=== PATIENT | male | born 1975 | race Caucasian/White ===

== ENCOUNTER 2016-11-01 17:17 | Inpatient (IN) | payer BC ==
[2016-11-01] MEDS ORDERED: cefTRIAXone 2 GM Vial IVPUSH ONE (17:18)
[2016-11-01] MEDS ORDERED: Sodium Chloride 0.9% 10 ML Syringe FLUSH PRN (17:18)
[2016-11-01] MEDS: Acetaminophen 325 MG Tab PO PRN ×2 (19:18→22:50)
[2016-11-01] MEDS: Sodium Chloride 0.9% 1,000 ML IV SCH (19:19)
[2016-11-01] MEDS ORDERED: cefTRIAXone 2 GM, Lidocaine 1% 4.2 ML IM ONE ×2 (19:39)
[2016-11-02] MEDS: Sodium Chloride 0.9% 1,000 ML IV SCH (05:16)
[2016-11-02 06:45] VITALS: BP 128/67
[2016-11-02 06:57] LABS: CHLORIDE,CL 103 mmol/L (98-107); SODIUM,NA 141 mmol/L (136-145)
--- NOTE | 2016-11-02 08:28 | PCM.HP ---
H&P History of Present Illness - General Date of Service: 11/01/16 Admit Problem/Dx: Admission Diagnosis/Problem Admission Diagnosis/Problem Sepsis due to cellulitis of RLE Source of Information: Patient - History of Present Illness Initial Comments - Free Text/Narative: 41 yo male admitted from the [facility] for sepsis secondary to cellulitis. Patient presented to the clinic for concerns of not feeling well for 1 day and having noticed redness and swelling to the RLE. Denies pain, but states it is "uncomfortable". Unsure of any fevers while at home but was 101.1 in the clinic. Patient has had a hx of cellulitis to the RLE that was well treated with Keflex. At the time it was noted his HR was 128. Denies palpitations or chest pain. Did have a YANES. BP was within normal range. EKG was performed and showed sinus tachycardia. Lab work was also drawn and revealed a WBC of 33.1. Patient denied diarrhea, abdominal pain, or UR symptoms. PMH significant for HTN and elevated A1C. Does not currently take medications aside from Indomethacin as needed for gout flare. Onset of Symptoms: Reports: Today, Sudden Location: Reports: Lower Extremity, Right Quality: Reports: Ache Severity: Mild Associated Symptoms: Reports: Fever/Chills - Related Data Allergies/Adverse Reactions: Allergies Allergy/AdvReac Type Severity Reaction Status Date / Time No Known Allergies Allergy Verified 11/01/16 17:34 Home Medications: Home Meds Lisinopril 20 mg PO DAILY 11/01/16 [History] NIFEdipine [Nifedipine ER] 90 mg PO DAILY 11/01/16 [History] Cephalexin [Keflex] 500 mg PO QID #40 capsule 11/02/16 [Rx] Past Medical History HEENT History: Reports: None Cardiovascular History: Reports: None Respiratory History: Reports: None Gastrointestinal History: Reports: None Genitourinary History: Reports: None Musculoskeletal History: Reports: None Neurological History: Reports: None Psychiatric History: Reports: None Endocrine/Metabolic History: Reports: None Hematologic History: Reports: None Immunologic History: Reports: None Oncologic (Cancer) History: Reports: None Dermatologic History: Reports: None - Infectious Disease History Infectious Disease History: Reports: Chicken Pox - Past Surgical History Head Surgeries/Procedures: Reports: None HEENT Surgical History: Reports: Tonsillectomy Cardiovascular Surgical History: Reports: None Respiratory Surgical History: Reports: None GI Surgical History: Reports: None Male Surgical History: Reports: None Endocrine Surgical History: Reports: None Neurological Surgical History: Reports: None Musculoskeletal Surgical History: Reports: None Oncologic Surgical History: Reports: None Dermatological Surgical History: Reports: None Social & Family History - Family History Family Medical History: Noncontributory - Tobacco Use Smoking Status *Q: Never Smoker - Caffeine Use Caffeine Use: Reports: None - Recreational Drug Use Recreational Drug Use: No H&P Review of Systems - Review of Systems: Review Of Systems: See Below General: Reports: Fever, Chills HEENT: Denies: Rhinitis, Post Nasal Drip, Sinus Congestion Pulmonary: Reports: No Symptoms. Denies: Cough Cardiovascular: Reports: Edema. Denies: Chest Pain, Palpitations Gastrointestinal: Denies: Abdominal Pain, Diarrhea Skin: Reports: Erythema, Change in Color. Denies: Wound Exam - Exam Exam: See Below - Vital Signs Vital Signs: Last Vital Signs Temp 36.4 C 11/02/16 06:00 Pulse 83 11/02/16 06:00 Resp 20 11/02/16 06:00 BP 128/67 11/02/16 06:00 Pulse Ox 93 L 11/02/16 06:00 Weight: 176.175 kg - Exam General: Alert, Oriented, Other (No distress) Lungs: Clear to Auscultation, Normal Respiratory Effort. No: Decreased Breath Sounds, Crackles, Rales, Rhonchi, Wheezing Cardiovascular: Regular Rhythm, Normal S1, Normal S2, Tachycardia (120's) Extremities: Edema (Trace edema bilaterally), Increased Warmth, Other ( Blanching eythema measuruing 10.5 x 12.5 to the RLE) Skin: Warm, Dry Neuro Extensive - Mental Status: Alert, Oriented x3, Normal Mood/Affect, Normal Cognition, Memory Intact Neuro Extensive - Motor, Sensory, Reflexes: Normal Gait Psychiatric: Alert, Normal Affect, Normal Mood - Patient Data Lab Results last 24 hrs: Laboratory Results - last 24 hr 11/01/16 11/01/16 11/01/16 Range/Units 18:45 18:45 18:58 WBC (4.0-10.0) x10^3/uL RBC (4.5-6.0) x10^6/uL Hgb (14.0-18.0) g/dL Hct (40.0-52.0) % MCV (78.0-93.0) fL MCH (26.0-32.0) pg MCHC (32.0-36.0) g/dL RDW Coeff of Ekaterina (10.0-15.0) % Plt Count (130-400) x10^3/uL Neut % (Auto) (50.0-80.0) % Lymph % (Auto) (25.0-50.0) % [place] % (Auto) (2.0-11.0) % Eos % (Auto) (0.0-4.0) % Baso % (Auto) (0.2-1.2) % Sodium (136-145) mmol/L Potassium (3.5-5.1) mmol/L Chloride (98-107) mmol/L Carbon Dioxide (21-32) mmol/L BUN (7-18) mg/dL Creatinine (0.70-1.30) mg/dL Est Cr Clr Drug Dosing mL/min Estimated GFR (MDRD) Glucose (74-106) mg/dL POC Glucose (74-106) mg/dL Lactic Acid 2.8 H (0.4-2.0) mmol/L Calcium (8.5-10.1) mg/dL C-Reactive Protein 8.7 H (<=0.9) mg/dL Urine Color Yellow (YELLOW) Urine Appearance Clear (CLEAR) Urine pH 5.5 (5.0-8.0) Ur Specific [place] 1.020 Urine Protein Trace H (NEGATIVE) mg/dL Urine Glucose (UA) Negative (NEGATIVE) mg/dL Urine Ketones Negative (NEGATIVE) mg/dL Urine Occult Blood Trace-lysed H (NEGATIVE) Urine Nitrite Negative (NEGATIVE) Urine Bilirubin Negative (NEGATIVE) Urine Urobilinogen 0.2 (0.2) EU/dL Ur Leukocyte Esterase Negative (NEGATIVE) Urine RBC 0-5 (NOT SEEN) /HPF Urine WBC 0-5 (NOT SEEN) /HPF Ur Squamous Epith Cells Not seen (NEGATIVE) /HPF Urine Bacteria Rare (NEGATIVE) /HPF Urine Mucus Rare H (NEGATIVE) /LPF 11/01/16 11/02/16 11/02/16 Range/Units 20:22 06:20 06:27 WBC 18.9 H (4.0-10.0) x10^3/uL RBC 4.67 (4.5-6.0) x10^6/uL Hgb 13.4 L (14.0-18.0) g/dL Hct 40.0 (40.0-52.0) % MCV 85.7 (78.0-93.0) fL MCH 28.7 (26.0-32.0) pg MCHC 33.5 (32.0-36.0) g/dL RDW Coeff of Ekaterina 14.5 (10.0-15.0) % Plt Count 174 (130-400) x10^3/uL Neut % (Auto) 85.2 H (50.0-80.0) % Lymph % (Auto) 4.6 L (25.0-50.0) % [place] % (Auto) 10.0 (2.0-11.0) % Eos % (Auto) 0.1 (0.0-4.0) % Baso % (Auto) 0.1 L (0.2-1.2) % Sodium (136-145) mmol/L Potassium (3.5-5.1) mmol/L Chloride (98-107) mmol/L Carbon Dioxide (21-32) mmol/L BUN (7-18) mg/dL Creatinine (0.70-1.30) mg/dL Est Cr Clr Drug Dosing mL/min Estimated GFR (MDRD) Glucose (74-106) mg/dL POC Glucose 166 H 128 H (74-106) mg/dL Lactic Acid (0.4-2.0) mmol/L Calcium (8.5-10.1) mg/dL C-Reactive Protein (<=0.9) mg/dL Urine Color (YELLOW) Urine Appearance (CLEAR) Urine pH (5.0-8.0) Ur Specific [place] Urine Protein (NEGATIVE) mg/dL Urine Glucose (UA) (NEGATIVE) mg/dL Urine Ketones (NEGATIVE) mg/dL Urine Occult Blood (NEGATIVE) Urine Nitrite (NEGATIVE) Urine Bilirubin (NEGATIVE) Urine Urobilinogen (0.2) EU/dL Ur Leukocyte Esterase (NEGATIVE) Urine RBC (NOT SEEN) /HPF Urine WBC (NOT SEEN) /HPF Ur Squamous Epith Cells (NEGATIVE) /HPF Urine Bacteria (NEGATIVE) /HPF Urine Mucus (NEGATIVE) /LPF 11/02/16 11/02/16 Range/Units 06:27 06:27 WBC (4.0-10.0) x10^3/uL RBC (4.5-6.0) x10^6/uL Hgb (14.0-18.0) g/dL Hct (40.0-52.0) % MCV (78.0-93.0) fL MCH (26.0-32.0) pg MCHC (32.0-36.0) g/dL RDW Coeff of Ekaterina (10.0-15.0) % Plt Count (130-400) x10^3/uL Neut % (Auto) (50.0-80.0) % Lymph % (Auto) (25.0-50.0) % [place] % (Auto) (2.0-11.0) % Eos % (Auto) (0.0-4.0) % Baso % (Auto) (0.2-1.2) % Sodium 141 (136-145) mmol/L Potassium 3.5 (3.5-5.1) mmol/L Chloride 103 (98-107) mmol/L Carbon Dioxide 29 (21-32) mmol/L BUN 14 (7-18) mg/dL Creatinine 1.1 (0.70-1.30) mg/dL Est Cr Clr Drug Dosing 97.86 mL/min Estimated GFR (MDRD) > 60 Glucose 139 H (74-106) mg/dL POC Glucose (74-106) mg/dL Lactic Acid 0.8 (0.4-2.0) mmol/L Calcium 8.0 L (8.5-10.1) mg/dL C-Reactive Protein (<=0.9) mg/dL Urine Color (YELLOW) Urine Appearance (CLEAR) Urine pH (5.0-8.0) Ur Specific [place] Urine Protein (NEGATIVE) mg/dL Urine Glucose (UA) (NEGATIVE) mg/dL Urine Ketones (NEGATIVE) mg/dL Urine Occult Blood (NEGATIVE) Urine Nitrite (NEGATIVE) Urine Bilirubin (NEGATIVE) Urine Urobilinogen (0.2) EU/dL Ur Leukocyte Esterase (NEGATIVE) Urine RBC (NOT SEEN) /HPF Urine WBC (NOT SEEN) /HPF Ur Squamous Epith Cells (NEGATIVE) /HPF Urine Bacteria (NEGATIVE) /HPF Urine Mucus (NEGATIVE) /LPF Result Diagrams: 11/02/16 06:27 11/02/16 06:27 Phillip Results last 24 hrs: Microbiology 11/01/16 18:55 Anaerobic Blood Culture - Final Blood - Venous - Lab Draw 11/01/16 18:45 Anaerobic Blood Culture - Final Blood - Venous *Q Meaningful Use (ADM) - VTE *Q VTE Criteria *Q: - Stroke *Q Stroke Criteria *Q: - AMI *Q AMI Criteria *Q: Problem List Initiated/Reviewed/Updated: Yes Orders Last 24hrs: Active Orders 24 hr Category Date Time Status Blood Glucose Check, Bedside [RC] 07,11,17,20 Care 11/01/16 17:18 Active Oxygen Therapy [RC] .PRN Care 11/01/16 17:18 Active Up ad Karen [RC] ASDIRECTED Care 11/01/16 17:18 Active VTE/DVT Education [RC] .PRN Care 11/01/16 17:18 Active Vital Signs [RC] 06,10,14,18,22,02 Care 11/01/16 17:18 Active [place] [employer] Diet [DIET] Diet 11/01/16 Dinner Active Chest 2V [CR] Routine Exams 11/01/16 17:17 Taken CULTURE BLOOD [BC] Stat Lab 11/01/16 18:45 Results CULTURE BLOOD [BC] Stat Lab 11/01/16 18:55 Results Acetaminophen [Tylenol] Med 11/01/16 17:18 Active 650 mg PO Q4H PRN Sodium Chloride 0.9% [Normal Saline] 1,000 ml Med 11/01/16 17:30 Active IV ASDIRECTED Sodium Chloride 0.9% [Saline Flush] Med 11/01/16 17:18 Active 10 ml FLUSH ASDIRECTED PRN Blood Culture x2 Reflex Set [OM.PC] Stat Oth 11/01/16 17:17 Ordered Peripheral IV Insertion Adult [OM.PC] Routine Oth 11/01/16 17:18 Ordered Resuscitation Status Routine Resus Stat 11/01/16 17:18 Ordered Medication Orders Acetaminophen (Tylenol) 650 mg PO Q4H PRN PRN Reason: Pain (Mild 1-3)/fever Last Admin: 11/01/16 22:50 Dose: 650 mg Admin: 11/01/16 19:18 Dose: 650 mg Sodium Chloride (Normal Saline) 1,000 mls @ 125 mls/hr IV ASDIRECTED MIKE Last Admin: 11/02/16 05:16 Dose: 125 mls/hr Infusion: 11/02/16 03:19 Dose: 125 mls/hr Admin: 11/01/16 19:19 Dose: 125 mls/hr Sodium Chloride (Saline Flush) 10 ml FLUSH ASDIRECTED PRN PRN Reason: Keep Vein Open Assessment/Plan Comment:: Sepsis secondary to cellulitis Cellulitis of RLE HTN Hx of elevated A1C 1. IV fluids at a rate of 125 ml/hr 2. 2 g IV rocephin 3. Tylenol prn fevers 4. Full code 5. Will obtain blood cultures, CRP, lactic acid, UA, and CXR 6. Repeat labs in the morning
--- NOTE | 2016-11-02 08:44 | PCM.DCSUM1 ---
Discharge Summary - Hospital Course Free Text/Narrative:: 41 yo male was admitted to acute care yesterday after presenting to the [facility] with signs and symptoms suggestive of sepsis. Work-up at that time revealed a HR of 128, WBC of 33.1, and temp of 101.1. Patient received 2 g of IV rocephin and was started on NS 125 ml/hr. Blood cultures, UA, lactic acid, and CXR were obtained. Lactic acid was elevated at 2.8 but improved today to 0.8. UA and CXR negative. WBC down to 18.9. Fevers broke shortly after admission and 1 dose of tylenol. No significant expansion of the cellulitis noted. - Discharge Data Discharge Date: 11/02/16 Discharge Disposition: Home, Self-Care 01 Condition: Good - Patient Instructions Diet: Usual Diet as Tolerated Activity: As Tolerated Driving: May Drive Today Showering/Bathing: May Shower Notify Provider of: Fever, Increased Pain, Swelling and Redness, Drainage Other/Special Instructions: 1. IV Rocephin today before discharge. 2. Keflex 500 mg four times daily for 10 days. 3. Tylenol as needed. 4. Recheck in the clinic in 2 days. 5. Return to the clinic or ER sooner if developing worsening pain, increased redness, or fevers/chills - Discharge Plan Prescriptions/Med Rec: Cephalexin [Keflex] 500 mg PO QID #40 capsule Home Medications: Home Meds Lisinopril 20 mg PO DAILY 11/01/16 [History] NIFEdipine [Nifedipine ER] 90 mg PO DAILY 11/01/16 [History] Cephalexin [Keflex] 500 mg PO QID #40 capsule 11/02/16 [Rx] - General Info Date of Service: 11/02/16 Admission Dx/Problem (Free Text: 41 yo male was seen on acute care after admission yesterday evening for sepsis secondary to cellulitis of the RLE. Patient states that he is doing much better today. Did start out with a 103 fever shortly after admission that resolved with a dose of tylenol. No fevers since. Denies chills. Pulse has been in the 80's overnight. Does have some tenderness to the RLE but does not necessarily have pain. There is warm. Nurse marked the leg last night and only noticed minimal increase in erythema. There have not been any open sores. WBC was 33.1 in the clinic yesterday and is now down to 18.9. Lactic acid was elevated after admission but dropped down to 0.8 this morning. He received 2 g IV Rocephin last night and has been getting NS 125 ml/hr. CXR and UA were negative. Blood cultures are still pending. He has a hx of cellulitis to the RLE. This last occurred in February 2016 and was successfully treated with keflex 500 mg QID for 10 days. Patient would like to go home today. No questions or concerns at this time. - Review of Systems General: Denies: Fever, Weakness, Chills HEENT: Denies: sinus congestion, rhinitis Pulmonary: Denies: cough Gastrointestinal: Denies: Abdominal pain, Constipation, Diarrhea Skin: Reports: other (erythema to RLE) Neurological: Denies: Dizziness - Patient Data Vitals - Most Recent: Last Vital Signs Temp 36.4 C 11/02/16 06:00 Pulse 83 11/02/16 06:00 Resp 20 11/02/16 06:00 BP 128/67 11/02/16 06:00 Pulse Ox 93 L 11/02/16 06:00 Weight - Most Recent: 176.175 kg I&O - Last 24 hours: Intake & Output 11/01/16 11/02/16 11/02/16 22:59 06:59 14:59 Intake Total 1797 Output Total 500 Balance 1297 Lab Results - Last 24 hrs: Laboratory Results - last 24 hr 11/01/16 11/01/16 11/01/16 Range/Units 18:45 18:45 18:58 WBC (4.0-10.0) x10^3/uL RBC (4.5-6.0) x10^6/uL Hgb (14.0-18.0) g/dL Hct (40.0-52.0) % MCV (78.0-93.0) fL MCH (26.0-32.0) pg MCHC (32.0-36.0) g/dL RDW Coeff of Ekaterina (10.0-15.0) % Plt Count (130-400) x10^3/uL Neut % (Auto) (50.0-80.0) % Lymph % (Auto) (25.0-50.0) % [place] % (Auto) (2.0-11.0) % Eos % (Auto) (0.0-4.0) % Baso % (Auto) (0.2-1.2) % Sodium (136-145) mmol/L Potassium (3.5-5.1) mmol/L Chloride (98-107) mmol/L Carbon Dioxide (21-32) mmol/L BUN (7-18) mg/dL Creatinine (0.70-1.30) mg/dL Est Cr Clr Drug Dosing mL/min Estimated GFR (MDRD) Glucose (74-106) mg/dL POC Glucose (74-106) mg/dL Lactic Acid 2.8 H (0.4-2.0) mmol/L Calcium (8.5-10.1) mg/dL C-Reactive Protein 8.7 H (<=0.9) mg/dL Urine Color Yellow (YELLOW) Urine Appearance Clear (CLEAR) Urine pH 5.5 (5.0-8.0) Ur Specific [place] 1.020 Urine Protein Trace H (NEGATIVE) mg/dL Urine Glucose (UA) Negative (NEGATIVE) mg/dL Urine Ketones Negative (NEGATIVE) mg/dL Urine Occult Blood Trace-lysed H (NEGATIVE) Urine Nitrite Negative (NEGATIVE) Urine Bilirubin Negative (NEGATIVE) Urine Urobilinogen 0.2 (0.2) EU/dL Ur Leukocyte Esterase Negative (NEGATIVE) Urine RBC 0-5 (NOT SEEN) /HPF Urine WBC 0-5 (NOT SEEN) /HPF Ur Squamous Epith Cells Not seen (NEGATIVE) /HPF Urine Bacteria Rare (NEGATIVE) /HPF Urine Mucus Rare H (NEGATIVE) /LPF 11/01/16 11/02/16 11/02/16 Range/Units 20:22 06:20 06:27 WBC 18.9 H (4.0-10.0) x10^3/uL RBC 4.67 (4.5-6.0) x10^6/uL Hgb 13.4 L (14.0-18.0) g/dL Hct 40.0 (40.0-52.0) % MCV 85.7 (78.0-93.0) fL MCH 28.7 (26.0-32.0) pg MCHC 33.5 (32.0-36.0) g/dL RDW Coeff of Ekaterina 14.5 (10.0-15.0) % Plt Count 174 (130-400) x10^3/uL Neut % (Auto) 85.2 H (50.0-80.0) % Lymph % (Auto) 4.6 L (25.0-50.0) % [place] % (Auto) 10.0 (2.0-11.0) % Eos % (Auto) 0.1 (0.0-4.0) % Baso % (Auto) 0.1 L (0.2-1.2) % Sodium (136-145) mmol/L Potassium (3.5-5.1) mmol/L Chloride (98-107) mmol/L Carbon Dioxide (21-32) mmol/L BUN (7-18) mg/dL Creatinine (0.70-1.30) mg/dL Est Cr Clr Drug Dosing mL/min Estimated GFR (MDRD) Glucose (74-106) mg/dL POC Glucose 166 H 128 H (74-106) mg/dL Lactic Acid (0.4-2.0) mmol/L Calcium (8.5-10.1) mg/dL C-Reactive Protein (<=0.9) mg/dL Urine Color (YELLOW) Urine Appearance (CLEAR) Urine pH (5.0-8.0) Ur Specific [place] Urine Protein (NEGATIVE) mg/dL Urine Glucose (UA) (NEGATIVE) mg/dL Urine Ketones (NEGATIVE) mg/dL Urine Occult Blood (NEGATIVE) Urine Nitrite (NEGATIVE) Urine Bilirubin (NEGATIVE) Urine Urobilinogen (0.2) EU/dL Ur Leukocyte Esterase (NEGATIVE) Urine RBC (NOT SEEN) /HPF Urine WBC (NOT SEEN) /HPF Ur Squamous Epith Cells (NEGATIVE) /HPF Urine Bacteria (NEGATIVE) /HPF Urine Mucus (NEGATIVE) /LPF 11/02/16 11/02/16 Range/Units 06:27 06:27 WBC (4.0-10.0) x10^3/uL RBC (4.5-6.0) x10^6/uL Hgb (14.0-18.0) g/dL Hct (40.0-52.0) % MCV (78.0-93.0) fL MCH (26.0-32.0) pg MCHC (32.0-36.0) g/dL RDW Coeff of Ekaterina (10.0-15.0) % Plt Count (130-400) x10^3/uL Neut % (Auto) (50.0-80.0) % Lymph % (Auto) (25.0-50.0) % [place] % (Auto) (2.0-11.0) % Eos % (Auto) (0.0-4.0) % Baso % (Auto) (0.2-1.2) % Sodium 141 (136-145) mmol/L Potassium 3.5 (3.5-5.1) mmol/L Chloride 103 (98-107) mmol/L Carbon Dioxide 29 (21-32) mmol/L BUN 14 (7-18) mg/dL Creatinine 1.1 (0.70-1.30) mg/dL Est Cr Clr Drug Dosing 97.86 mL/min Estimated GFR (MDRD) > 60 Glucose 139 H (74-106) mg/dL POC Glucose (74-106) mg/dL Lactic Acid 0.8 (0.4-2.0) mmol/L Calcium 8.0 L (8.5-10.1) mg/dL C-Reactive Protein (<=0.9) mg/dL Urine Color (YELLOW) Urine Appearance (CLEAR) Urine pH (5.0-8.0) Ur Specific [place] Urine Protein (NEGATIVE) mg/dL Urine Glucose (UA) (NEGATIVE) mg/dL Urine Ketones (NEGATIVE) mg/dL Urine Occult Blood (NEGATIVE) Urine Nitrite (NEGATIVE) Urine Bilirubin (NEGATIVE) Urine Urobilinogen (0.2) EU/dL Ur Leukocyte Esterase (NEGATIVE) Urine RBC (NOT SEEN) /HPF Urine WBC (NOT SEEN) /HPF Ur Squamous Epith Cells (NEGATIVE) /HPF Urine Bacteria (NEGATIVE) /HPF Urine Mucus (NEGATIVE) /LPF SKINNY Results - Last 24 hrs: Microbiology 11/01/16 18:55 Anaerobic Blood Culture - Final Blood - Venous - Lab Draw 11/01/16 18:45 Anaerobic Blood Culture - Final Blood - Venous Med Orders - Current: Current Medications Acetaminophen (Tylenol) 650 mg PO Q4H PRN PRN Reason: Pain (Mild 1-3)/fever Last Admin: 11/01/16 22:50 Dose: 650 mg Sodium Chloride (Normal Saline) 1,000 mls @ 125 mls/hr IV ASDIRECTED MIKE Last Admin: 11/02/16 05:16 Dose: 125 mls/hr Sodium Chloride (Saline Flush) 10 ml FLUSH ASDIRECTED PRN PRN Reason: Keep Vein Open Discontinued Medications Ceftriaxone Sodium (Rocephin) 2 gm IVPUSH ONETIME ONE Stop: 11/01/16 17:19 Last Admin: 11/01/16 19:19 Dose: 2 gm Ceftriaxone Sodium 2 gm/ (Lidocaine HCl 4.2 ml) 0 gm IM ONETIME ONE Stop: 11/01/16 19:40 Last Admin: 11/01/16 19:56 Dose: Not Given - Exam General: Reports: alert, oriented Lungs: Reports: Clear to auscultation, Normal respiratory effort. Denies: Decreased breath sounds, Crackles, Rales, Rhonchi, Wheezing Cardiovascular: Reports: Regular Rate, Regular Rhythm, No Murmurs Abdomen: Reports: bowel sounds present, soft, no tenderness, no distension Extremities: Reports: no edema Skin: Reports: warm, dry, other (Erythema to RLE with very minimal areas of expansion from previously drawn borders. There is wamrth. No open sores. ) Psy/Mental Status: Reports: alert, normal affect, normal mood *Q Meaningful Use (DIS) - VTE *Q VTE Criteria *Q: - Stroke *Q Stroke Criteria *Q: - AMI *Q AMI Criteria *Q:
[2016-11-02] MEDS ORDERED: cefTRIAXone 2 GM Vial IVPUSH ONE (08:45)
== END 2016-11-02 09:40 | disposition home or self-care (01) | DRG 720 ==
LOC: VM.MS 18:22
PROVIDERS: ADMIT Physician Assistant; ATTEND Physician Assistant
DX: A41.9 Sepsis, unspecified organism (principal); L03.115 Cellulitis of right lower limb; I10 Essential (primary) hypertension; Z79.899 Other long term (current) drug therapy
CPT/HCPCS: 36415; 71020; 80048; 81001; 82962; 83605; 85025; 86140; 87040; A9270-GY; J0696; J7030

== ENCOUNTER 2018-09-09 20:32 | Emergency (ER) | payer BC ==
--- NOTE | 2018-09-09 20:34 | EDM.PDOC ---
ED HPI GENERAL MEDICAL PROBLEM - General Chief Complaint: ENT Problem Stated Complaint: EAR PAIN Time Seen by Provider: 09/09/18 20:34 Source of Information: Reports: Patient, RN, RN Notes Reviewed History Limitations: Reports: No Limitations - History of Present Illness INITIAL COMMENTS - FREE TEXT/NARRATIVE: Patient presents to the ED at [facility] for the evaluation of ear pain that started yesterday and has progressively gotten worse. Patient denies any injury or trauma. Denies any URI symptoms. No cough or SOB. Denies sore throat. No rhinitis or sinus pressure/pain. Patient has not been taking anything for his ear pain. No fever or chills. No chest pain. Denies any skin problems. Patient is trying to stay well hydrated with good PO fluid intake. No close family members or contacts with similar symptoms. - Related Data Allergies Allergy/AdvReac Type Severity Reaction Status Date / Time No Known Allergies Allergy Verified 09/09/18 20:39 Home Meds: Home Meds Lisinopril 20 mg PO DAILY 11/01/16 [History] NIFEdipine [Nifedipine ER] 90 mg PO DAILY 11/01/16 [History] Amoxicillin [Amoxil] 875 mg PO Q12HR 8 Days #16 tab 09/09/18 [Rx] Past Medical History HEENT History: Reports: None Cardiovascular History: Reports: None Respiratory History: Reports: None Gastrointestinal History: Reports: None Genitourinary History: Reports: None Musculoskeletal History: Reports: None Neurological History: Reports: None Psychiatric History: Reports: None Endocrine/Metabolic History: Reports: None Hematologic History: Reports: None Immunologic History: Reports: None Oncologic (Cancer) History: Reports: None Dermatologic History: Reports: None - Infectious Disease History Infectious Disease History: Reports: Chicken Pox - Past Surgical History Head Surgeries/Procedures: Reports: None HEENT Surgical History: Reports: Tonsillectomy Cardiovascular Surgical History: Reports: None Respiratory Surgical History: Reports: None GI Surgical History: Reports: None Male Surgical History: Reports: None Endocrine Surgical History: Reports: None Neurological Surgical History: Reports: None Musculoskeletal Surgical History: Reports: None Oncologic Surgical History: Reports: None Dermatological Surgical History: Reports: None Social & Family History - Family History Family Medical History: Noncontributory - Caffeine Use Caffeine Use: Reports: None ED ROS ENT - Review of Systems Review Of Systems: ROS reveals no pertinent complaints other than HPI. ED EXAM, ENT - Physical Exam Exam: See Below Exam Limited By: No Limitations General Appearance: Alert, No Apparent Distress Eye Exam: Bilateral Eye: Normal Inspection, PERRL Ears: Canal Swelling, TM Bulging (Right), TM Erythema. No: TM Perforation Nose: Normal Inspection Mouth/Throat: Normal Inspection, Normal Oropharynx, Normal Teeth Neck: Supple. No: Lymphadenopathy (L), Lymphadenopathy (R) Respiratory/Chest: No Respiratory Distress, Lungs Clear, Normal Breath Sounds Cardiovascular: Normal Peripheral Pulses, Regular Rate, Rhythm Neurological: Alert, Oriented Skin: Warm, Dry, Intact, Normal Color Departure - Departure Time of Disposition: 20:44 Disposition: Home, Self-Care 01 Condition: Good Clinical Impression: Otitis media Qualifiers: Otitis media type: suppurative Chronicity: acute Laterality: right Recurrence: non-recurrent Spontaneous tympanic membrane rupture: without spontaneous rupture Qualified Code(s): H66.001 - Acute suppurative otitis media without spontaneous rupture of ear drum, right ear - Discharge Information *PRESCRIPTION DRUG MONITORING PROGRAM REVIEWED*: Not Applicable *COPY OF PRESCRIPTION DRUG MONITORING REPORT IN PATIENT ASTRID: Not Applicable Prescriptions: Amoxicillin [Amoxil] 875 mg PO Q12HR 8 Days #16 tab Instructions: Otitis Media, Adult Referrals: Milind Todd MD [Primary Care Provider] - Forms: ED Department Discharge Additional Instructions: 1. Stay well hydrated and rest 2. Take antibiotics for the full coarse, even if you are feeling better 3. Advil/Tylenol for pain 4. No Q-tips or other foreign objects in either ear 5. See your PCP as symptoms warrant - Problem List Review Problem List Initiated/Reviewed/Updated: Yes - Assessment/Plan Assessment:: Acute otitis media, right ear Plan: Assessment findings discussed with patient. Will start on Amoxil BID for 10 days. No Q-tips or other foreign objects in either ear. Stay hydrated. Tylenol/ Advil for pain. See PCP as symptoms warrant.
[2018-09-09 20:44] VITALS: BP 147/81
[2018-09-09] MEDS ORDERED: Take Home: Amoxicillin 875 MG Tab, 2 Tab Pack PO ONE (20:46)
== END 2018-09-09 21:00 | disposition home or self-care (01) ==
LOC: VM.ED 20:32
DX: H66.001 Acute suppurative otitis media without spontaneous rupture of ear drum, right ear (principal); Z79.899 Other long term (current) drug therapy
CPT/HCPCS: 99282; A9270

== ENCOUNTER 2019-07-25 19:38 | Emergency (ER) | payer BC ==
[2019-07-25] MEDS ORDERED: Take Home: Amoxicillin/Clavulanate K 875-125 MG Tab, 2 Tab Pack PO ONE (19:58)
[2019-07-25 20:16] VITALS: BP 135/81; PULSE 76
--- NOTE | 2019-07-27 08:10 | EDM.PDOC ---
ED HPI GENERAL MEDICAL PROBLEM - General Chief Complaint: ENT Problem Stated Complaint: EAR PAIN Time Seen by Provider: 07/25/19 19:45 Source of Information: Reports: Patient History Limitations: Reports: No Limitations - History of Present Illness INITIAL COMMENTS - FREE TEXT/NARRATIVE: Pt. presents to ER with complaints of R ear pain. He states that he has a history of recurrent OM in the past, and states that the discomfort is similar to this. Denies any fever or chills. No sore throat. No cough. No chest pain or shortness of breath. Pt. states that he will be travelling by air in the next several days. Onset Date: 07/25/19 Location: Reports: Face Quality: Reports: Ache Right ear Pain Score (Numeric/FACES): 3 - Related Data Allergies Allergy/AdvReac Type Severity Reaction Status Date / Time No Known Allergies Allergy Verified 07/25/19 20:16 Home Meds: Home Meds Lisinopril 20 mg PO DAILY 11/01/16 [History] NIFEdipine [Nifedipine ER] 90 mg PO DAILY 11/01/16 [History] Amoxicillin [Amoxil] 875 mg PO Q12HR 8 Days #16 tab 09/09/18 [Rx] Past Medical History HEENT History: Reports: None Cardiovascular History: Reports: Hypertension Respiratory History: Reports: None Gastrointestinal History: Reports: None Genitourinary History: Reports: None Musculoskeletal History: Reports: None Neurological History: Reports: None Psychiatric History: Reports: None Endocrine/Metabolic History: Reports: None Hematologic History: Reports: None Immunologic History: Reports: None Oncologic (Cancer) History: Reports: None Dermatologic History: Reports: None - Infectious Disease History Infectious Disease History: Reports: Chicken Pox - Past Surgical History Head Surgeries/Procedures: Reports: None HEENT Surgical History: Reports: Tonsillectomy Cardiovascular Surgical History: Reports: None Respiratory Surgical History: Reports: None GI Surgical History: Reports: None Male Surgical History: Reports: None Endocrine Surgical History: Reports: None Neurological Surgical History: Reports: None Musculoskeletal Surgical History: Reports: None Oncologic Surgical History: Reports: None Dermatological Surgical History: Reports: None Social & Family History - Family History Family Medical History: Noncontributory - Caffeine Use Caffeine Use: Reports: None ED ROS GENERAL - Review of Systems Review Of Systems: See Below Constitutional: Reports: No Symptoms HEENT: Reports: Ear Pain Respiratory: Reports: No Symptoms Cardiovascular: Reports: No Symptoms Endocrine: Reports: No Symptoms GI/Abdominal: Reports: No Symptoms : Reports: No Symptoms Musculoskeletal: Reports: No Symptoms Skin: Reports: No Symptoms Neurological: Reports: No Symptoms Psychiatric: Reports: No Symptoms Hematologic/Lymphatic: Reports: No Symptoms Immunologic: Reports: No Symptoms ED EXAM, GENERAL - Physical Exam Exam: See Below Exam Limited By: No Limitations General Appearance: Alert, WD/WN, No Apparent Distress Eye Exam: Bilateral Eye: EOMI, Normal Fundi, Normal Inspection, PERRL Ears: Normal External Exam, Normal Canal Ear Exam: Right Ear: TM Dull, TM Red, TM Bulging Nose: Normal Inspection, Normal Mucosa, No Blood Throat/Mouth: Normal Inspection, Normal Lips, Normal Teeth, Normal Gums, Normal Oropharynx, Normal Voice, No Airway Compromise Head: Atraumatic, Normocephalic Neck: Normal Inspection, Supple, Non-Tender, Full Range of Motion Course - Vital Signs Last Recorded V/S: Last Vital Signs Temp 36.8 C 07/25/19 19:40 Pulse 76 07/25/19 19:40 Resp 16 07/25/19 19:40 BP 135/81 07/25/19 19:40 Pulse Ox - Orders/Labs/Meds Meds: Medications Discontinued Medications Generic Name Dose Route Start Last Admin Trade Name Ambrose PRN Reason Stop Dose Admin Amoxicillin/Clavulanate Potassium 1 packet 07/25/19 19:58 07/25/19 20:00 Take Home: Amox/Clavulanate 875-12, 2 Tab Pac PO 07/25/19 19:59 1 packet ONETIME ONE Administration Departure - Departure Time of Disposition: 20:20 Disposition: Home, Self-Care 01 Clinical Impression: Right otitis media - Discharge Information Instructions: Amoxicillin; Clavulanic Acid tablets, Otitis Media, Adult, Easy- to-Read Referrals: Morales Torres PA-C [Primary Care Provider] - Forms: ED Department Discharge Additional Instructions: Augmentin 875mg 1 twice daily for 10 days Pseudoephedrine 30mg 1 tab every 6 hours to assist in clearing fluid from middle ear Ibuprofen 200mg 3 tabs every 6 hours as needed for pain/prior to flying especially. Sepsis Event Note - Evaluation Sepsis Screening Result: No Definite Risk - Assessment/Plan Plan: Augmentin 875mg 1 twice daily for 10 days Pseudoephedrine 30mg 1 tab every 6 hours to assist in clearing fluid from middle ear Ibuprofen 200mg 3 tabs every 6 hours as needed for pain/prior to flying especially.
== END 2019-07-25 20:09 | disposition home or self-care (01) ==
LOC: VM.ED 19:38
DX: H66.91 Otitis media, unspecified, right ear (principal); I10 Essential (primary) hypertension; Z79.899 Other long term (current) drug therapy
CPT/HCPCS: 99282; A9270-GY

== ENCOUNTER 2020-07-30 19:29 | Emergency (ER) | payer BC ==
--- NOTE | 2020-07-30 19:45 | EDM.PDOC ---
ED HPI GENERAL MEDICAL PROBLEM - General Stated Complaint: POSSIBLE CELLULITIS Time Seen by Provider: 07/30/20 19:40 Source of Information: Reports: Patient History Limitations: Reports: No Limitations - History of Present Illness INITIAL COMMENTS - FREE TEXT/NARRATIVE: Patient comes emergency department today from home with complaints of cellulitis of the right lower extremity. The patient noticed yesterday he had an area on the anterolateral aspect of the mid tib-fib region that started yesterday. It is gotten quite a bit more swollen and painful in the last couple of hours. He has had no fever or chills. There was no break in the skin that he is aware of. His tetanus immunization is up-to-date. No Covid exposure no Covid symptoms. - Related Data Allergies Allergy/AdvReac Type Severity Reaction Status Date / Time No Known Allergies Allergy Verified 07/30/20 20:05 Home Meds: Home Meds Lisinopril 20 mg PO DAILY 11/01/16 [History] NIFEdipine [Nifedipine ER] 90 mg PO DAILY 11/01/16 [History] Sulfamethoxazole/Trimethoprim [Bactrim Ds Tablet] 1 each PO BID #14 tablet 07/30/20 [Rx] Past Medical History HEENT History: Reports: None Cardiovascular History: Reports: Hypertension Respiratory History: Reports: None Gastrointestinal History: Reports: None Genitourinary History: Reports: None Musculoskeletal History: Reports: None Neurological History: Reports: None Psychiatric History: Reports: None Endocrine/Metabolic History: Reports: None Hematologic History: Reports: None Immunologic History: Reports: None Oncologic (Cancer) History: Reports: None Dermatologic History: Reports: None - Infectious Disease History Infectious Disease History: Reports: Chicken Pox - Past Surgical History Head Surgeries/Procedures: Reports: None HEENT Surgical History: Reports: Tonsillectomy Cardiovascular Surgical History: Reports: None Respiratory Surgical History: Reports: None GI Surgical History: Reports: None Male Surgical History: Reports: None Endocrine Surgical History: Reports: None Neurological Surgical History: Reports: None Musculoskeletal Surgical History: Reports: None Oncologic Surgical History: Reports: None Dermatological Surgical History: Reports: None Social & Family History - Family History Family Medical History: No Pertinent Family History - Caffeine Use Caffeine Use: Reports: None ED ROS GENERAL - Review of Systems Review Of Systems: Comprehensive ROS is negative, except as noted in HPI. ED EXAM, SKIN/RASH Exam: See Below Exam Limited By: No Limitations General Appearance: Alert, WD/WN, No Apparent Distress Respiratory/Chest: No Respiratory Distress Cardiovascular: Normal Peripheral Pulses, Regular Rate, Rhythm Extremities: No: Normal Inspection (Lamination the right lower extremity on the mid anterolateral right tib fib region there is an area of redness about the size of a golfball that is tender indurated and swollen. No fluctuance concerning for abscess. There is mild erythema around area. NO streaks up the leg.) Neurological: Alert, Oriented Psychiatric: Normal Affect, Normal Mood Skin: Warm, Dry, Intact, Normal Color Course - Orders/Labs/Meds Meds: Medications Discontinued Medications Generic Name Dose Route Start Last Admin Trade Name Freq PRN Reason Stop Dose Admin Trimethoprim/Sulfamethoxazole 1 tab 07/30/20 19:41 07/30/20 19:52 Septra Ds PO 07/30/20 19:42 1 tab ONETIME ONE Administration - Re-Assessments/Exams Free Text/Narrative Re-Assessment/Exam: 07/30/20 19:46 Bactrim DS given in the ED. NO sign of fluctuance for the need of I/D at this time. Departure - Departure Time of Disposition: 19:40 Disposition: Home, Self-Care 01 Clinical Impression: Furuncle of extremity - Discharge Information Prescriptions: Sulfamethoxazole/Trimethoprim [Bactrim Ds Tablet] 1 each PO BID #14 tablet Instructions: Skin Abscess Referrals: Morales Torres PA-C [Primary Care Provider] - Additional Instructions: Tylenol and or Ibuprofen as needed for pain. Warm packs to the area to help it drain. Bactrim, 1 tablet twice daily for the next 7 days. First dose given in the ED and RX sent to [facility]. Return to the ED if new or worsening symptoms. Follow up with PCP in the next 4-6 days if not improving sooner if worse.
[2020-07-30] MEDS: Sulfamethoxazole/Trimethoprim 800-160 MG Tab PO ONE (19:52)
[2020-07-30 22:21] VITALS: BP 151/78; PULSE 86
== END 2020-07-30 20:01 | disposition home or self-care (01) ==
LOC: VM.ED 19:29
DX: L02.425 Furuncle of right lower limb (principal); I10 Essential (primary) hypertension; Z79.899 Other long term (current) drug therapy
CPT/HCPCS: 99283; A9270-GY

== ENCOUNTER 2024-10-18 18:37 | Emergency (ER) | payer BC ==
[2024-10-18 18:55] VITALS: BP 143/68; PULSE 77
[2024-10-18] MEDS: Clindamycin HCl 150 MG Cap PO ONE (18:57)
== END 2024-10-18 18:58 | disposition home or self-care (01) ==
LOC: VM.ED 18:37
DX: L03.116 Cellulitis of left lower limb (principal); I10 Essential (primary) hypertension; Z79.899 Other long term (current) drug therapy
CPT/HCPCS: 99283; A9270